=== PATIENT | female | born 1975 | race Caucasian/White ===

== ENCOUNTER → 2016-09-29 | Day surgery (SDC) | payer MEDICARE ==
[~2016-09-29] MED LIST: ALBUTEROL17 GM INH; ALPRAZOLAM PO; CIPRO PO; CYMBALTA30 MG PO; DEMEROL PO; DILAUDID PO; K-DUR10 MEQ PO; K-DUR20 ME1 PO; KCL PO; KEFLEX PO; LAMICTAL100 MG PO; LIPITOR PO; LISINOPRIL10 MG PO; LORTAB 10-5001 EACH PO; LORTAB 10/500 T1 TAB PO; MICRO-K PO; NAPROSYN500 MG PO; NEXIUM PO; NORCO 10-325 TA1 TAB PO; NORCO 10/325 TA1 TAB PO; OXYCONTIN PO; PERCOCET10 PO; PHENERGAN PO; PHENERGAN PR; PHENERGAN SUPP25 MG PR; PHENERGAN25 M1 PO; PHENERGAN25 MG PO; PREDNISONE PO; PRILOSEC PO; SEROQUEL XR150 MG PO; SOMA PO; TRAMADOL HCL50 M1 PO; TYLENOL325 M1 PO; VOLTAREN75 MG PO; ZOFRAN ODT4 MG PO; ZOFRAN PO; [UNRECOGNIZED DRUG - REMARK]
--- NOTE | ~2016-09-29 | OR ---
Unit #: [id number] #: [id number] Patient: CARY CARDENAS [id number] [address] [place], [place] [address] [id number] MR#: [id number] NAME: CARY CARDENAS. ROOM: Date of Procedure: 09/29/2016 Admission Date: 09/29/2016 Surgeon: José Miguel Hadley M.D. : 1975 Attending Physician: José Miguel Hadley M.D. Primary Care Physician: Dagmar Sequeira M.D. PROCEDURE OPERATIVE NOTE PREOPERATIVE DIAGNOSIS Back pain, sacroiliac joint dysfunction. POSTOPERATIVE DIAGNOSIS Back pain, sacroiliac joint dysfunction. PROCEDURE PERFORMED Left sacroiliac joint injection with intravenous sedation under fluoroscopic guidance for needle localization. HISTORY The patient is a 40-year-old female with return of left sided low back pain and sacroiliac joint dysfunction who last had a sacroiliac joint injection done one year ago and did quite well with this until just recently. Based on histopathology, symptomatology and treatment options, we are going to proceed with a repeat sacroiliac joint injection today. PROCEDURE The patient was placed in a prone position. Standard monitors were applied. 4 mg of versed were given for sedation and anxiolysis which were adequate. Vital signs remained stable. Sterile prep and drape then of the lumbosacral area was performed. The skin overlying the mid part of the left sacroiliac joint was localized using 1% lidocaine. Fluoroscopy was used as guidance to advanced a 20-gauge [place] spinal needle into the left sacroiliac joint. Position was confirmed with radiographic contrast and fluoroscopy. After confirming this, a dose of 80 mg of Depo-Medrol and 4 mL of 0.125% bupivacaine were deposited. The patient tolerated the procedure otherwise well and was discharged to the recovery room in stable condition. Dictated by... Dylan Alvarado/tiffanie TD: 09/29/2016 13:04 JOB #: [id number] Unit #: [id number] #: [id number] Patient: CARY CARDENAS PROCEDURE OPERATIVE NOTE Page 1 of 1 X José Miguel Hadley MD X PROCEDURE OPERATIVE NOTE
== END | disposition home or self-care (01) ==
LOC: CCSC 08:51
DX: M53.3 Sacrococcygeal disorders, not elsewhere classified (principal); I10 Essential (primary) hypertension
CPT/HCPCS: J1040; J2250